=== PATIENT | male | born 1970 | race Caucasian/White ===

== ENCOUNTER → 2020-11-18 11:25 | Outpatient (CLI) | payer OTHER, SELFPAY ==
--- NOTE | ~2020-11-18 | CT_ITS ---
EXAMINATION: CT abdomen pelvis w con DATE: 11/18/2020 11:56 INDICATION: Abdominal pain TECHNIQUE: Computed tomography (CT) of the abdomen and pelvis was performed with 100 mL Omnipaque-350 intravenous contrast. Automated exposure control and iterative reconstruction technique were employe d. The dose-length product was 1042.18 mGy-cm. COMPARISON: None FINDINGS: Lung bases are clear. Heart size is normal. No pericardial or pleural effusion. Liver, gallbladder, s pleen, pancreas, bilateral adrenal glands and kidneys are normal. There is mild scattered colonic div erticulosis without adjacent inflammatory change to suggest diverticulitis. Small bowel and appendix are normal. Bladder is normal. No free intraperitoneal gas or fluid. No free intraperitoneal gas or f luid. No pathologically enlarged abdominal or pelvic lymphadenopathy. Mild lumbar spondylosis with mu ltilevel grade 1 retrolisthesis from L2 on L3 through L5 on S1. IMPRESSION: 1. No acute intra-abdominal/pelvic process. 2. Mild colonic diverticulosis. Reviewed, dictated and finalized at location A.
[2020-11-18 11:48] LABS: Estimated Glomerular Filt Rate > 60
== END ==
PROVIDERS: PCP Physician Assistant; Visit Provider Physician Assistant
DX: R10.9 Unspecified abdominal pain (principal); K57.30 Diverticulosis of large intestine without perforation or abscess without bleeding
CPT/HCPCS: 74177; Q9967

== ENCOUNTER 2022-05-04 14:12 | Emergency (ER) | payer OTHER, SELFPAY ==
--- NOTE | 2022-05-04 14:22 | ED.DENTAL ---
HPI - Dental/Oral General Chief complaint: Dizziness Stated complaint: tooth pain, almost passed out Time Seen by Provider: 05/04/22 14:27 Source: patient Mode of arrival: ambulatory Limitations: no limitations History of Present Illness HPI Narrative: 52-year-old male presents with concern for right lower dental pain. He reports he has had dental pain for about 2 days. He was taking some leftover pain medicine that improved the pain temporarily and called his dentist who could not see him today. He reports at lunch today he felt a little lightheaded, sweaty and clammy and a sensation of feeling like he was going to pass out. He reports he did not have a syncopal episode. He reports that lasted a few seconds. He denies fever, chills, body aches, headache, trouble swallowing. He denies chest pain, shortness of breath MD Complaint: tooth pain Related Data Home Medications Medication Instructions Recorded Confirmed lisinopril 30 mg tablet 30 mg PO DAILY 05/04/22 05/04/22 Allergies Allergy/AdvReac Type Severity Reaction Status Date / Time Sulfa (Sulfonamide Allergy Unknown Verified 05/04/22 14:25 Antibiotics) Review of Systems Review of Systems: CONSTITUTIONAL: Denies current malaise, chills, sweats, or fever. EYES: Denies visual changes ENT: Denies rhinorrhea, congestion, sinus pain, otalgia or sore throat. Reports left lower dental pain CARDIOVASCULAR: Denies chest pain, palpitations RESPIRATORY: Denies cough or dyspnea. SKIN: Denies rash or itching. MUSCULOSKELETAL: Denies myalgia. NEUROLOGIC: Denies numbness, weakness, or headache. All systems reviewed & are unremarkable except as noted in HPI and below PMFSH Comments At time of signature, agree with nursing past medical, surgical, social and family history. There is no relevant family history pertinent to the presenting complaint Exam Narrative: GENERAL: Well-appearing, well-nourished, and in no acute distress. HEAD: Normocephalic, atraumatic. EYES: PERRLA, sclera clear ENT: Nares clear, turbinates pink, no rhinorrhea or epistaxis. Mucous membranes moist. TM pearly gutierrez with sharp light reflex bilaterally; no tragal tenderness. Oropharynx without erythema or lesions. Tonsils not enlarged and without exudate. Nomissing teeth, broken teeth, caries NECK: Supple. No lymphadenopathy. CHEST: No respiratory distress. Speaks in full sentences. HEART: Regular rate and rhythm. SKIN: Warm, dry, no visible rash. NEURO: Alert and oriented x3. PSYCH: Normal mood and affect Course Course Emergency Course: Patient is aware of diagnosis, understands and agrees to treatment plan. Anticipatory guidance given. Patient agrees to follow-up as directed and is aware of reasons to seek care at the emergency department. Portions of this record may have been created with voice recognition software Level of Care: Express Care Visit Vital Signs Vital signs: Reviewed. MDM - Dental/Oral MDM Narrative Medical decision making narrative: Patients pain and complaint coupled with physical findings are consistant with dentalgia. There are no focal signs of space occupying lesions that are compromising to the airway; no dysphagia, odynophagia, dysphonia, or dyspnea. No uvular deviation or soft palate edema. Patient is non-toxic appearing. The floor of the mouth is soft with no signs of Eligio's Angina; no induration below mandible, no neck pain. Patient is without trismus or drooling and able to swallow secretions. Patient is felt appropriate for discharge home with dental follow up. Differential Diagnosis Differential diagnosis: Likely gingival abscess, dental caries, toothache, dental abscess, fracture of tooth and aphthous ulcer Critical Care Time Critical Care Time Critical Care Time: No Discharge Plan Discharge Clinical Impression: Toothache Patient Disposition: Home, Self-Care Condition: Stable Instructions: Antibiotic Form, Toothache (ED) Jon
[2022-05-04 14:25] VITALS: BP 133/92; PULSE 66; RESP 18; TEMP 36.3; O2SAT 100
[2022-05-04 14:26] VITALS: BP 133/92; PULSE 66; RESP 18; TEMP 36.3; O2SAT 100
== END 2022-05-04 14:38 | disposition home or self-care (01) ==
PROVIDERS: Emergency Provider Nurse Practitioner; PCP Physician Assistant
DX: K08.89 Other specified disorders of teeth and supporting structures (principal); I10 Essential (primary) hypertension
CPT/HCPCS: 99203; G0463

== ENCOUNTER → 2023-02-05 15:22 | Outpatient (CLI) | payer OTHER, SELFPAY ==
--- NOTE | ~2023-02-05 | CT_ITS ---
EXAMINATION: CT soft tissue neck w con DATE: 02/05/2023 15:53 INDICATION: Cervical lymphadenopathy. TECHNIQUE: Computed tomography (CT) of the neck was performed with 75 mL Omnipaque-350 intravenous co ntrast. Automated exposure control and iterative reconstruction technique were employed. The dose-rosa gth product was 418.19 mGy-cm. COMPARISON: None FINDINGS: There is a 2.1 x 1.8 cm left high internal jugular chain lymph node with central low attenu ation. The node abuts the left submandibular gland. A skin marker overlies this area. The pharyngeal mucosal space is unremarkable. There is 0% stenosis of the proximal internal carotid arteries relativ e to normal distal artery lumen diameters. There is mild mucosal thickening in right maxillary sinus. There is severe cervical spondylosis. IMPRESSION: 1. Enlarged high left internal jugular chain lymph node, most likely metastatic squamous cell carcino ma. Ultrasound-guided core needle biopsy is recommended. Reviewed, dictated and finalized at location E. IMPRESSION: 1. Enlarged high left internal jugular chain lymph node, most likely metastatic squamous cell carcinoma. Ultrasound-guided core needle biopsy is recommended.
[2023-02-05 15:41] LABS: Estimated Glomerular Filt Rate 53
== END ==
PROVIDERS: PCP Physician Assistant; Visit Provider Physician Assistant
DX: R59.0 Localized enlarged lymph nodes (principal)
CPT/HCPCS: 70491; Q9967

== ENCOUNTER 2023-03-10 18:18 | Emergency (ER) | payer OTHER, SELFPAY ==
[2023-03-10 18:19] VITALS: BP 135/90; PULSE 75; RESP 16; TEMP 36.7; O2SAT 98
--- NOTE | 2023-03-10 18:42 | ED.RECABL ---
HPI - Recheck/Abnormal Lab/Rx General Chief Complaint: Recheck/Abnormal Lab/Rx <Dennise Goodrich PA-C - Last Filed: 03/10/23 20:48> Stated Complaint: bleeding in mouth post T&A <Dennise Goodrich PA-C - Last Filed: 03/10/23 20:48> Time Seen by Provider: 03/10/23 18:26 <Dennise Goodrich PA-C - Last Filed: 03/10/23 20:48> History of Present Illness HPI narrative: 52 y/o M with history of esophageal cancer reports for evaluation for postop hemorrhage within the past hour. Patient had surgery at [place] performed by head and neck surgeon Dr. Javier 3 days ago for tonsillectomy an lymphadenectomy. Pt had a drain placed in the left side of his neck which has been draining blood since the surgery. States the blood in the drain has slowed exponentially since the surgery. Patient reports today however, he was sleeping and he woke up with blood running down the back of his throat began spitting up blood. States he called his surgeon who advised him to go to his nearest ED to be stabilized if the bleeding continued. Patient reports he feels that the bleeding has lessened significantly. He denies vomiting or significant amounts of blood. He denies lightheadedness, dizziness, chest pain or shortness of breath, fever. He does report some abdominal discomfort which she attributes to the bleeding. Denies fever. States he is currently placed on antibiotics since the surgery. Reports his pain is very mild at this time. <Dennise Goodrich PA-C - Last Filed: 03/10/23 20:48> Related Data Home Medications: Home Medications Medication Instructions Recorded Confirmed lisinopril 30 mg tablet 30 mg PO DAILY 05/04/22 05/04/22 <TRIXIE Albarran Last Filed: 03/10/23 20:48> Allergies/Adverse Reactions: Allergies Allergy/AdvReac Type Severity Reaction Status Date / Time Sulfa (Sulfonamide Allergy Unknown Verified 03/10/23 18:21 Antibiotics) <TRIXIE Albarran Last Filed: 03/10/23 20:48> Review of Systems Review of Systems: CONSTITUTIONAL: Denies fever, chills EYES: Denies visual changes, redness, or discharge. ENT: See HPI CARDIOVASCULAR: Denies chest pain, palpitations, or edema. RESPIRATORY: Denies cough or dyspnea. GASTROINTESTINAL: See HPI GENITOURINARY: Denies dysuria or hematuria. SKIN: Denies rash or itching. MUSCULOSKELETAL: Denies back pain, joint pain, or myalgia. NEUROLOGIC: Denies headache, numbness, dizziness, or weakness. PSYCHIATRIC: Denies anxiety or depression. <Dennise Goodrich PA-C - Last Filed: 03/10/23 20:48> Exam Narrative: GENERAL: Well-appearing, in no acute distress. Patient resting comfortably in exam bed. He is pleasant and conversational. Speaking in full sentences. HEAD: Normocephalic EYES: PERRLA ENT: Nares clear. Mucous membranes moist. Posterior pharynx erythematous, s/p tonsillectomy. Healing scabs to tonsillar pillars. L tonsillar pillar with mild oozing and scab present. No active hemorrhage. No blood in posterior pharynx. Airway protected. NECK: Supple. Drain in place to the left neck draining a mild amount of blood. No surrounding erythema, induration or fluctuation. CHEST: No respiratory distress. Clear to auscultation, no adventitious breath sounds. HEART: Regular rate and rhythm. No murmur heard. Normal peripheral pulses. ABDOMEN: Soft, nontender, normal active bowel sounds. EXTREMITIES: Normal range of motion. No edema. SKIN: Warm, dry, no rash. NEURO: No focal deficits. Alert and oriented x3. PSYCH: Normal mood and affect. <TRIXIE lAbarran Last Filed: 03/10/23 20:48> Course Course Emergency Course: Patient declined a second IV. I explained the reasoning behind this given the postop hemorrhaging, however he persistently declined. 1927: Patient reevaluated. Bleeding has stopped. He continues to feel well, no chest pain or shortness of breath, no lightheadedness. Awaiting to speak to the ENT surgeon a
[2023-03-10] MEDS: SODIUM CHLORIDE 0.9% IV 1,000 ML 999 ML IV CONT (18:45)
[2023-03-10 18:50] LABS: Basophils Absolute Auto 0.1 K/mm3 (0.0-0.1); Basophils Percent Auto 0.9 % (0.2-1.2); Eosinophils Absolute Auto 0.1 K/mm3 (0-0.3); Eosinophils Percent Auto 0.7 % (0-4.4); Hematocrit 40.9 % (42.0-52.0); Hemoglobin 13.9 g/dL (14.0-18.0); Immature Granulocyte Absolute 0.06 K/mm3 (0.00-0.031); Immature Granulocyte Percent A 0.7 % (0-0.5); Lymphocytes Absolute Auto 2.29 K/mm3 (0.9-3.2); Lymphocytes Percent Auto 24.9 % (18.3-44.2); Mean Corpuscular Hemoglobin 31.8 pg (26-34); Mean Corpuscular Volume 93.6 fl (80-100); Mean Platelet Volume 9.5 fl (7.4-10.4); Monocytes Percent Auto 10.5 % (2.6-8.5); Neutrophils Absolute Auto 5.7 K/mm3 (1.3-6.7); Neutrophils Percent Auto 62.3 % (45.5-73.1); Platelet Count Result 329 k/mm3 (150-375); Red Blood Count 4.37 M/mm3 (4.6-6.20); Red Cell Distribution Width 11.8 % (11.5-14.5); White Blood Count 9.2 K/mm3 (4.5-10.0)
--- NOTE | 2023-03-10 19:00 | PC.NURSE ---
Attempted a second IV, per Dennise's request, pt denied and stated, can't we just bypass this? I am not even bleeding. Pt was educated on the need for a second IV and PA was notified.
[2023-03-10 19:02] LABS: Prothrombin Time 13.4 Seconds (11.1-14.7)
[2023-03-10 19:03] LABS: Partial Thromboplastin Time 30.6 SECONDS (22.3-36.8)
[2023-03-10 19:05] LABS: Potassium 3.6 mmol/L (3.4-5.0)
[2023-03-10 19:15] LABS: Anion Gap 8 mmol/L (8-16); Blood Urea Nitrogen 12 mg/dL (9-20); Calcium 9.4 mg/dL (8.4-10.2); Carbon Dioxide 26 mmol/L (22-30); Chloride 100 mmol/L (98-107); Estimated CRCL calculation 85 ml/min; Estimated Glomerular Filt Rate > 60; Glucose 100 mg/dL (65-110); Sodium 134 mmol/L (137-145)
--- NOTE | 2023-03-10 19:21 | ECG_ITS ---
Measurements Intervals [place] Rate: 67 P: 29 VT: 177 QRS: -5 QRSD: 104 T: 46 QT: 385 QTc: 406 Interpretive Statements SINUS RHYTHM NORMAL ECG NO PREVIOUS ECG AVAILABLE FOR COMPARISON Electronically Signed On 03-11-2023 15:34:20 CDT by Missael Chi M.D.
--- NOTE | 2023-03-10 19:21 | PC.NURSE ---
Report received from DANUTA Lopez. Assumed care of patient at this time.
[2023-03-10 19:44] VITALS: BP 114/78; PULSE 72; O2SAT 97
[2023-03-10 21:21] VITALS: BP 135/82; PULSE 67; RESP 17; O2SAT 98
== END 2023-03-10 21:22 | disposition short-term general hospital (02) ==
PROVIDERS: Emergency Provider Physician Assistant; PCP Physician Assistant
DX: J95.830 Postprocedural hemorrhage of a respiratory system organ or structure following a respiratory system procedure (principal); Z85.01 Personal history of malignant neoplasm of esophagus
CPT/HCPCS: 36415; 80048; 85025; 85610; 85730; 86850; 86900; 86901; 93005; 96360; 99285; J7030